=== PATIENT | female | born 1955 | race Caucasian/White ===

== ENCOUNTER → 2016-05-22 | Day surgery (SDC) | payer OTHER ==
[~2016-05-22] MED LIST: AMLO5TAB2 PO; CARV6.252 PO; FLUD.1 PO; FURO20TA PO; HYDR10TA65 PO; HYDR5TAB64 PO; LEVO.1 PO; METF500T PO; OMEP20TA PO; POTA-163 PO; TEMA7.5C PO
[2016-05-22 11:01] VITALS: BP 133/73; PULSE 84; RESP 14; TEMP 98.7; O2SAT 99
--- NOTE | 2016-05-22 12:14 | RADRPT ---
EXAM DATE/TIME: 05/22/2016 12:00 [facility] COMPARISON: No previous studies available for comparison. INDICATIONS : Post thoracentesis removed 1100ML MEDICAL HISTORY : Hypertension. SURGICAL HISTORY : Partial thyroidectomy ENCOUNTER: Initial ACUITY: 1 day PAIN SCORE: 0/10 LOCATION: Right chest FINDINGS: A single frontal expiratory view of the chest was performed. The lungs are symmetrically aerated and clear. No evidence of pneumothorax. Mediastinal structures are in the midline. The cardio-mediastinal contours and bronchopulmonary markings are unremarkable for an expiratory exam . Osseous structures are intact. CONCLUSION: Negative for pneumothorax. John Penn MD FACR on May 22, 2016 at 12:12 Board Certified Radiologist. This report was verified electronically.
[2016-05-22 12:20] VITALS: BP 135/66; PULSE 81; RESP 18; O2SAT 96
[2016-05-22 12:35] VITALS: BP 143/53; PULSE 82; RESP 18; O2SAT 95
--- NOTE | 2016-05-22 13:16 | RADRPT ---
EXAM DATE/TIME: 05/22/2016 11:08 [facility] COMPARISON: US CHEST LEFT, January 19, 2016, 13:18. INDICATIONS : Left pleural effusion. MEDICAL HISTORY : Diabetic. Hypertension. Hepatitis C. Hodgkin's disease. radiation. chemotherapy. adrenal insuff iciency. SURGICAL HISTORY : Splenectomy. section. Thyroidectomy. Aortic valve repair. Bowel obstruction surgery. Herni a. Laparotomy. ENCOUNTER: Subsequent ACUITY: 1 week PAIN SCORE: 2/10 LOCATION: Left chest MEASUREMENTS: SKIN TO PARIETAL PLEURA: Inadequate fluid SKIN TO MAX SAFE DEPTH: Inadequate fluid ESTIMATED FLUID VOLUME: 85 cc FLUID COMPOSITION: complex FINDINGS: No marking was performed. There is loculated fluid in the left chest inadequate for thoracentesis CONCLUSION: 1. Loculated fluid. Marking was not performed Luis F Magana MD on May 22, 2016 at 13:14 Board Certified Radiologist. This report was verified electronically.
--- NOTE | 2016-05-22 15:31 | RADRPT ---
EXAM DATE/TIME: 05/22/2016 11:30 [facility] COMPARISON: No previous studies available for comparison. INDICATIONS : Right pleural effusion. MEDICAL HISTORY : Diabetic. Hypertension. Hepatitis C. Hodgkin's disease. radiation. chemotherapy. adrenal insuff iciency SURGICAL HISTORY : Splenectomy. Thyroidectomy. section. Aortic valve repair. Bowel obstruction surgery. Herni a. Laparotomy. ENCOUNTER: Initial ACUITY: 1 week PAIN SCORE: 3/10 LOCATION: Right chest FLUID: Total volume of 1100 cc of cloudy, yellow fluid was removed. Fluid was discarded. Thoracentesis was therapeutic only. TECHNIQUE: 1. Ultrasound guidance for thoracentesis. 2. Thoracentesis. The risks, benefits, and alternatives to ultrasound guided thoracentesis were explained to the patien t in lay simple terms, including the risk of bleeding and infection. Written and verbal informed con sent was obtained. Appropriate area for thoracentesis was marked under ultrasound guidance with the patient in the uprig ht position. Overlying skin was prepped and draped in the usual sterile fashion and with local anest hetic, a dermatotomy was made with an 11 blade scalpel. A 6 Tamazight thoracentesis catheter was placed in the pleural space and fluid was removed. Catheter was then removed and a sterile dressing applie d. There were no immediate complications. The patient tolerated the procedure well and the left the ultrasound suite in stable condition. Chest radiograph is to be obtained. CONCLUSION: Uncomplicated ultrasound guided thoracentesis. Luis F Magana MD on May 22, 2016 at 15:24 Board Certified Radiologist. This report was verified electronically.
== END | disposition home or self-care (01) ==
LOC: HRAD 10:11
PROVIDERS: ATTEND Specialist
DX: J90 Pleural effusion, not elsewhere classified (principal); B19.20 Unspecified viral hepatitis C without hepatic coma; E27.40 Unspecified adrenocortical insufficiency; I10 Essential (primary) hypertension; E11.9 Type 2 diabetes mellitus without complications; Z85.71 Personal history of Hodgkin lymphoma
CPT/HCPCS: 32555; 71010; 76604; C1729